=== PATIENT | male | born 2000 | race Caucasian/White ===

== ENCOUNTER 2022-01-23 19:02 | Outpatient (REF) | payer MEDICAID, SELFPAY ==
[2022-01-23 14:23] LABS: Bacteria Negative HPF (Negative); C & S Indicated? No; Casts Negative LPF (Negative); Crystals Negative HPF (Negative); Epithelial Cells Rare HPF (Negative); Mucus Trace (Negative); WBC 0-2 HPF (0-5)
[2022-01-24 13:40] LABS: Chlamydia Result Negative (Negative); GC Result Negative (Negative)
== END 2022-01-23 19:03 | disposition home or self-care (01) ==
LOC: LBN 19:02
PROVIDERS: Visit Provider Nurse Practitioner Family
DX: R31.9 Hematuria, unspecified (principal)
CPT/HCPCS: 87491; 87591; 81015

== ENCOUNTER 2025-04-11 23:50 | Emergency (ER) | payer MEDICAID, SELFPAY ==
[2025-04-11 23:58] VITALS: BP 151/85; PULSE 88; RESP 16; TEMP 36.2; O2SAT 99
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
[2025-04-12] MEDS: Lidocaine 5% Patch 1 PATCH TP (00:30)
[2025-04-12] MEDS: Acetaminophen 500 MG TAB 1000 MG PO (00:31)
[2025-04-12] MEDS: Ibuprofen 800 MG TAB PO (00:31)
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
== END 2025-04-12 01:38 | disposition home or self-care (01) ==
PROVIDERS: Emergency Provider Student in an Organized Health Care Education/Training Program
DX: S46.912A Strain of unspecified muscle, fascia and tendon at shoulder and upper arm level, left arm, initial encounter (principal); S13.4XXA Sprain of ligaments of cervical spine, initial encounter; V49.40XA Driver injured in collision with unspecified motor vehicles in traffic accident, initial encounter
CPT/HCPCS: 99283; 99284; 71046; 73030